=== PATIENT | male | born 1935 | race Caucasian/White ===

== ENCOUNTER 2017-09-06 17:57 | Inpatient (IN) | payer MEDICARE, OTHER ==
[~2017-09-06] VITALS: Ht 160 cm; Wt 85.7 kg
[2017-09-06 18:56] LABS: BASOPHILS # (AUTO) 0.1 /CMM (0.0-0.2); BASOPHILS % (AUTO) 0.5 % (0.0-2.0); EOSINOPHILS % (AUTO) 0.6 % (0.0-6.0); HEMATOCRIT 44 % (39-51); HEMOGLOBIN 14.6 g/dL (13.5-17.5); LYMPHOCYTES # (AUTO) 1.9 /CMM (0.8-4.8); LYMPHOCYTES % (AUTO) 18.3 % (20.0-44.0); MEAN CORPUSCULAR HGB CONC 33 g/dl (31.0-36.0); MEAN CORPUSCULAR VOLUME 85 fL (80-96); MONOCYTES # (AUTO) 0.8 /CMM (0.1-1.30); MONOCYTES % (AUTO) 7.3 % (2.0-12.0); NEUTROPHILS # (AUTO) 7.6 /CMM (1.8-8.9); NEUTROPHILS % (AUTO) 73.3 % (43.0-81.0); PLATELET COUNT (AUTO) 503 /CMM (150-450); RDW COEFFICIENT OF VARIATION 13.7 (11.5-15.0); RED BLOOD CELL COUNT(AUTO) 5.21 MIL/uL (4.5-6.0); WHITE BLOOD COUNT (AUTO) 10.5 K/uL (4.3-11.0)
--- NOTE | 2017-09-06 19:00 | NUR ---
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
[2017-09-06 19:03] LABS: CALCIUM, SERUM 10.7 mg/dL (8.5-10.1); CARBON DIOXIDE 29 mmol/L (21-32); CHLORIDE 99 mmol/L (98-107); CREATININE 1.1 mg/dL (0.6-1.3); GLUCOSE 127 mg/dL (74-106); POTASSIUM 3.8 mmol/L (3.5-5.1); SODIUM SERUM 137 mmol/L (136-145); UREA NITROGEN, BLOOD 13 mg/dL (7-18)
[2017-09-06 19:05] LABS: INR 1.03 (0.85-1.15)
--- NOTE | 2017-09-06 19:05 | NUR ---
TELERN RECEIVED FROM ER VIA [facility] AN 82 Y/O MALE WITH DIAGNOSIS FOR RESPIRATORY FAILURE. NO SOB SEEN. 02 AT 2L VIA WV MAINTAINED. PATIENT IS BIPOLAR, ABLE TO VERBALIZE HIS CONCERNS. WANTED TO GO HOME, EXPLAINED NEED TO BE HOSPITALIZED. COOPERATIVE OF THIS TIME. ORIENTED TO ROOM FACILITIES, REFUSED BODY CHECK FOR NOW. SYLWIA CONTINUE. Addendum: 09/06/17 at 2220 by SHYANN CAVAZOS RN PATIENT RECEIVED FROM ER AT 2105 IN ROOM 304 BED 1
[2017-09-06 19:11] LABS: TROPONIN I < 0.017 ng/mL (0.00-0.056)
[2017-09-06 19:16] LABS: ALANINE AMINOTRANSFERASE 21 U/L (12-78); ALBUMIN 3.2 g/dL (3.4-5.0); ALKALINE PHOSPHATASE 61 U/L (46-116); ASPARTATE AMINOTRANSFERASE 37 U/L (15-37); B-TYPE NATRIURETIC PEPTIDE 88 PG/ML (0-125); BILIRUBIN,DIRECT 0.2 mg/dL (0.0-0.2); BILIRUBIN,TOTAL 0.4 mg/dL (0.2-1.0); TOTAL PROTEIN, SERUM 9.3 g/dL (6.4-8.2)
[2017-09-06 19:47] LABS: ABG BASE EXCESS 1.5 mmol/L; ABG OXYGEN SATURATION 98.2 % (92.0-98.5); ABG PCO2 31.1 mmHg (35.0-45.0); ABG PH 7.501 (7.350-7.450); ABG PO2 109.2 mmHg (75.0-100.0); AaDO2 82.6 mmHg; COHb 0.7 % (0.5-1.5); MetHb 0.5 % (0.0-1.5); SITE, ABG Right Radial
[2017-09-06 20:00] VITALS: BP 136/98
--- NOTE | 2017-09-06 20:03 | NUR ---
CALLED [email or web address] REPORT CLERK WAS PAGED.
[2017-09-06] MEDS ORDERED: IV NS 0.9% 1,000 ML IV PRN (20:35)
--- NOTE | 2017-09-06 20:52 | NUR ---
PT TRANSPORTED TO [facility]
[2017-09-06] MEDS ORDERED: Z GUARD REMEDY 2 OZ OINT TP PRN (21:00)
[2017-09-06] MEDS ORDERED: LEVOFLOXACIN 500 MG /D5W 100ML 500 MG in PREMIX 1 EA IV ONE (21:00)
[2017-09-06] MEDS ORDERED: MAGNESIUM HYDROXIDE 30 ML UDC PO PRN (21:00)
[2017-09-06] MEDS ORDERED: ONDANSETRON HCL/PF 4 MG/2 ML VIAL IVP PRN (21:00)
[2017-09-06] MEDS ORDERED: MAG HYDROX/AL HYDROX/SIMETH 30 ML UDC PO PRN (21:00)
[2017-09-06] MEDS ORDERED: ENOXAPARIN SODIUM 40 MG/0.4 ML DISP.SYRIN SQ SCH (21:00)
[2017-09-06] MEDS ORDERED: ACETAMINOPHEN 325 MG TABLET PO PRN (21:00)
[2017-09-06] MEDS ORDERED: ZOLPIDEM TARTRATE 5 MG TABLET PO PRN (21:00)
--- NOTE | 2017-09-06 21:05 | NUR ---
TELERN PATIENT RECEIVED FROM ER AT THIS TIME, NOT 190.
[2017-09-06 21:30] VITALS: BP 136/98
[2017-09-06] MEDS ORDERED: LEVOFLOXACIN 500 MG /D5W 100ML 100 ML IV ONE (21:58)
[2017-09-06 22:08] LABS: THYROID STIMULATING HORMONE 1.404 uIU/mL (0.358-3.74)
--- NOTE | 2017-09-06 22:13 | NUR ---
TELERN UNABLE TO SCAN LEVAQUIN 500MG IVPB DOSE FOR TONIGHT. OVERIDE.. PATIENT WENT FOR LUNG SCAN VIA BED.
--- NOTE | 2017-09-06 22:45 | NUR ---
TELERN BACK FROM [facility]. COOPERATIVE THIS TIME. HS CARE STARTED. REPOSITIONED FOR COMFORT. ALL NEEDS MADE. CONTINUED MONITORING. OXYGEN AT 2L VIA NC MAINTAINED.
[2017-09-06] MEDS ORDERED: OLAN5TAB3 PO (23:21)
[2017-09-06] MEDS ORDERED: DOCU100C36 PO (23:21)
[2017-09-06] MEDS ORDERED: OLAN10TA3 PO (23:21)
[2017-09-06] MEDS ORDERED: DESV100T PO (23:21)
[2017-09-06] MEDS ORDERED: METO-357 PO (23:21)
[2017-09-06] MEDS ORDERED: BISA-79 PO (23:21)
[2017-09-06] MEDS ORDERED: TAMS-12 PO (23:21)
[2017-09-06] MEDS ORDERED: LATA2.5D7 EACHEYE (23:21)
[2017-09-06] MEDS ORDERED: FLUO5DRO7 EACHEYE (23:21)
[2017-09-06] MEDS ORDERED: PENI500T PO (23:21)
[2017-09-06] MEDS ORDERED: LEVO100T9 PO (23:21)
[2017-09-06] MEDS ORDERED: FENO145T35 PO (23:21)
[2017-09-06] MEDS ORDERED: OLOP2.5D EACHEYE (23:21)
[2017-09-06] MEDS ORDERED: TRIA80OI TP (23:21)
[2017-09-06] MEDS ORDERED: ATOR10TA PO (23:21)
[2017-09-06] MEDS ORDERED: CHOL200026 PO (23:21)
[2017-09-06] MEDS ORDERED: DEXT15DR6 EACHEYE (23:21)
[2017-09-07] VITALS (7 sets, daily range): BP systolic 112–154; BP diastolic 68–93
[2017-09-07] MEDS ORDERED: BISACODYL (5 MG) 5 MG TABLET.DR PO PRN
--- NOTE | 2017-09-07 02:40 | NUR ---
TELERN SLEEPING APPEARS COMFORTABLE. CONTINUED MONITORING
--- NOTE | 2017-09-07 03:15 | NUR ---
TELERN RECEIVED CALL FROM RADIOLOGIST REGARDING RESULTS OF VQ SCAN.
--- NOTE | 2017-09-07 03:15 | NUR ---
TELERN PER RADIOLOGIST RESULTS IN COMPUTER WILL BE AVAILABLE IN FEW MINUTES.
--- NOTE | 2017-09-07 03:25 | NUR ---
TELERN RELAYED RESULTS TO DR. VALDEZ ORDERS RECEIVED.
[2017-09-07] MEDS ORDERED: ENOXAPARIN SODIUM 40 MG/0.4 ML DISP.SYRIN SQ ONE (04:00)
[2017-09-07] MEDS ORDERED: ENOXAPARIN SODIUM 100 MG/ML DISP.SYRIN SQ SCH (04:00)
--- NOTE | 2017-09-07 04:03 | NUR ---
TELERN ADDITIONAL 40 MG SQ OF LOVENOX ADMINISTERED, PER PHARMACY ADJUSTED RENAL DOSE.
--- NOTE | 2017-09-07 06:30 | NUR ---
TELERN REMAINS STABLE, KEPT COMFORTABLE. CONTINUED MONITORING. REMAINS ST ON THE MONITOR
[2017-09-07 06:45] LABS: IRON, SERUM 52 ug/dl (50-175); TOTAL IRON BINDING CAPACITY 230 ug/dl (250-450)
--- NOTE | 2017-09-07 07:31 | NUR ---
RN ENDOCRINOLOGY NOTES PATIENT RECEIVED RESTING INSIDE ROOM, AWAKE, ALERT AND ORIENTED TO SELF AND PLACE BUT TO TIME/DATE OR SITUATION, PATIENT RE-ORIENTED NEEDED. BREATHING EVEN AND UNLABORED. NO SOB OR ACUTE DISTRESS NOTED AT THIS TIME. PATIENT DENIES ANY PAIN OR DISCOMFORT. AFEBRILE, SKIN DRY AND WARM TO TOUCH. NO CHANGES IN LOC NOTED AT THIS TIME. WILL CONTINUE TO MONITOR. BED LOCKED AND IN LOW POSITION. BILATERAL UPPER SIDE RAILS UP AND LOCKED. CALL LIGHT WITHIN EASY REACH
[2017-09-07] MEDS: ALBUTEROL FS 2.5 MG/3 ML VIAL.NEB NEB SCH ×4 (07:35→19:45)
[2017-09-07 08:42] LABS: BASOPHILS # (AUTO) 0.1 /CMM (0.0-0.2); BASOPHILS % (AUTO) 1.6 % (0.0-2.0); EOSINOPHILS % (AUTO) 1.9 % (0.0-6.0); HEMATOCRIT 42 % (39-51); HEMOGLOBIN 13.8 g/dL (13.5-17.5); LYMPHOCYTES # (AUTO) 2.1 /CMM (0.8-4.8); LYMPHOCYTES % (AUTO) 29.2 % (20.0-44.0); MEAN CORPUSCULAR HGB CONC 33 g/dl (31.0-36.0); MEAN CORPUSCULAR VOLUME 86 fL (80-96); MONOCYTES # (AUTO) 0.8 /CMM (0.1-1.30); MONOCYTES % (AUTO) 11.4 % (2.0-12.0); NEUTROPHILS # (AUTO) 4.2 /CMM (1.8-8.9); NEUTROPHILS % (AUTO) 55.9 % (43.0-81.0); PLATELET COUNT (AUTO) 465 /CMM (150-450); RDW COEFFICIENT OF VARIATION 13.8 (11.5-15.0); RED BLOOD CELL COUNT(AUTO) 4.89 MIL/uL (4.5-6.0); WHITE BLOOD COUNT (AUTO) 7.3 K/uL (4.3-11.0)
[2017-09-07] MEDS: OLANZAPINE 5 MG TABLET PO SCH ×2 (08:53→17:25)
[2017-09-07] MEDS: DOCUSATE SODIUM 100 MG CAPSULE PO SCH ×2 (08:53→17:25)
[2017-09-07] MEDS: TAMSULOSIN 0.4 MG CAP.SR.24H PO SCH (08:53)
[2017-09-07] MEDS: LEVOTHYROXINE SODIUM 100 MCG TABLET PO SCH (08:53)
[2017-09-07] MEDS: FENOFIBRATE NANOCRYS (145 MG) 145 MG TABLET PO SCH (08:54)
[2017-09-07] MEDS: METOPROLOL SUCCINATE 50 MG TAB.SR.24H PO SCH (08:54)
[2017-09-07] MEDS: ENOXAPARIN SODIUM 80 MG/0.8 ML DISP.SYRIN SQ SCH ×2 (08:55→21:27)
[2017-09-07 09:37] LABS: CALCIUM, SERUM 10.1 mg/dL (8.5-10.1); CARBON DIOXIDE 28 mmol/L (21-32); CHLORIDE 102 mmol/L (98-107); GLUCOSE 102 mg/dL (74-106); MAGNESIUM 1.7 mg/dL (1.8-2.4); PHOSPHORUS 3.6 mg/dL (2.5-4.9); POTASSIUM 3.9 mmol/L (3.5-5.1); SODIUM SERUM 141 mmol/L (136-145); UREA NITROGEN, BLOOD 11 mg/dL (7-18)
--- NOTE | 2017-09-07 11:01 | NUR ---
MS RN NOTES PATIENT SEEN AND EXAMINED BY DR. SINGLETARY, WITH NEW ORDERS FOR CT CHEST WITH CONTRAST. ORDER NOTED AND CARRIED OUT. PATIENT MADE AWARE AND VERBALIZED UNDERSTANDING. VERIFIED INFORMED CONSENT OBTAINED BY FROM MAYI PARSONS (COUSIN/POA). TELEPHONE CONSENT VERIFIED WITH ANOTHER RN. ALSO VERIFIED CODE STATUS WITH MAYI PARSONS AND VERBALIZED THAT HE WANTS TO KEEP THE CODE STATUS DNR/DNI. MADE AWARE
[2017-09-07] MEDS ORDERED: IV NS 0.9% 250 ML IV ONE (13:44)
[2017-09-07] MEDS ORDERED: IOHEXOL-350 100 ML VIAL IV ONE (13:44)
--- NOTE | 2017-09-07 14:50 | NUR ---
MS RN NOTES RECEIVED CALL FROM RADIOLOGY DEPARMENT WITH REPORT THAT PATIENT IS POSITIVE FOR RIGHT PULMONARY EMBOLISM, DR. SINGLETARY MADE AWARE.
--- NOTE | 2017-09-07 16:31 | NUR ---
INITIAL DUPLEX VENOUS LOWER EXT BI STUDY SHOWED POSITIVE FOR RIGHT DVT ON CFV, SFV PROX AND SFV MID LEVELS. ADVISED PRELIMINARY RESULTS TO ATTENDING NURSE (JULIETH).
--- NOTE | 2017-09-07 17:03 | NUR ---
MS RN NOTES FOLLOWED-UP WITH LAB RESULTS WITH DR. SINGLETARY REGARDING MAGNESIUM LEVEL AND GAVE NEW ORDER FOR MAGNESIUM 2g IV X 1. ORDER NOTED AND CARRIED OUT. PHARMACY TO VERIFY MEDICATION. WILL CONTINUE TO MONITOR
[2017-09-07] MEDS: Magnesium 1GM/D5W 100ML PREMIX 100 ML IV SCH ×2 (17:25→18:27)
[2017-09-07] MEDS: ATORVASTATIN 10 MG TABLET PO SCH (17:25)
[2017-09-07] MEDS ORDERED: Magnesium 1GM/D5W 100ML PREMIX PIGGYBACK IV ONE (17:30)
[2017-09-07] MEDS: HYDROCODONE/APAP 5/325MG 1 EACH TABLET PO PRN (17:41)
--- NOTE | 2017-09-07 17:50 | NUR ---
MS RN NOTES PLACED CALL TO PHARMACY TO FOLLOW-UP REGARDING XALATAN OPTH MEDICATION, SPOKE WITH JOSE MANUEL. MEDICATION IS NOT PRESENT IN UNIT. PHARMACY TO DELIVER PER JOSE MANUEL.
--- NOTE | 2017-09-07 18:28 | NUR ---
MS RN NOTES CALLED PHARMACY AGAIN TO FOLLOW-UP WITH XALATAN MEDICATION IS NOT AVAILABLE IN UNIT. PHARMACY TO FOLLOW-UP
--- NOTE | 2017-09-07 18:34 | NUR ---
MS RN NOTES PATIENT RESTING INSIDE ROOM. AWAKE, ALERT AND ORIENTED 2-3 WITH PERIODS OF FORGETFULNESS. BREATHING EVEN AND UNLABORED. ON O2 AT 2L/MIN VIA NC. NO NASAL IRRITATION OR BLEEDING NOTED. NO SOB OR ACUTE DISTRESS NOTED. PATIENT AFEBRILE, SKIN DRY AND WARM TO TOUCH. IV SITE ON RIGHT AC INTACT AND PATENT. WILL ENDORSE TO INCOMING SHIFT FOR CAROL. BED LOCKED AND IN LOW POSITION. BILATERAL UPPER SIDE RAILS UP AND LOCKED. FLOATED HEELS WITH PILLOWS WHILE ON BED. CALL LIGHT WITHIN EASY REACH
[2017-09-07] MEDS: LATANOPROST EYE DROP 0.005% 2.5 ML BOTTLE EACHEYE SCH (18:57)
--- NOTE | 2017-09-07 19:20 | NUR ---
RN OPENING NOTES RECEIVED PATIENT IN BED, ALERT AND ORIENTED X 2-3, NOTED TO BE FORGETFUL, NO SOB NOTED, BREATHING EVEN AND UNLABORED, RECEIVING O2 VIA NC @2LPM, NO C/O PAIN, IN NO ACUTE DISTRESS. ALL PATIENT'S NEEDS ATTENDED TO AT THIS TIME. PLACED BED IN LOW POSITION AND LOCKED IN PLACE. CALL LIGHT WITHIN EASY REACH. WILL CONTINUE TO MONITOR PT.
[2017-09-07 20:09] LABS: APPEARANCE,URINE SL CLOUDY (CLEAR); BILIRUBIN,URINE NEGATIVE (NEGATIVE); BLOOD, URINE TRACE Ery/uL (NEGATIVE); COLOR,URINE YELLOW (YELLOW); KETONES,URINE NEGATIVE (NEGATIVE); LEUKOCYTE ESTERASE ,URINE 1+ (NEGATIVE); NITRITE, URINE NEGATIVE (NEGATIVE); PH,URINE 8.5 (5.0-8.0); PROTEIN,URINE NEGATIVE (NEGATIVE); UGLUCOSE NEGATIVE (NEGATIVE); UROBILINOGEN,URINE 0.2 EU/dL (0.2)
[2017-09-07] MEDS: LEVOFLOXACIN 250 MG /D5W 50 ML 250 MG in PREMIX 1 EA IV SCH (20:22)
[2017-09-07 20:56] LABS: BACTERIA,URINE Moderate /HPF (None Seen); RBC,URINE 0-2 /HPF (0-2); SQUAMOUS EPITHELIAL CELL,UR Few /HPF (None Seen)
--- NOTE | 2017-09-08 04:47 | NUR ---
RN NOTES INFORMED DR. VALDEZ RE: PATIENT'S URINE PROFILE WITH ABNORMAL LEVELS, MD WITH NO NEW ORDERS. WILL CONTINUE TO MONITOR PATIENT.
--- NOTE | 2017-09-08 06:45 | NUR ---
304-1 RN CLOSING NOTES PATIENT IN BED, ASLEEP BUT EASILY AWOKEN. NOTED PATIENT TO HAVE EPISODES OF FORGETFULNESS, RE-ORIENTED NEEDED. NO SOB THROUGHOUT THE SHIFT AND CONTINUES TO RECEIVE O2 VIA NC @ 2LPM. ALL PATIENT'S NEEDS ATTENDED TO AT THIS TIME, BED IN LOW POSITION AND LOCKED IN PLACE. CALL LIGHT WITHIN EASY REACH. WILL ENDORSE TO AM SHIFT NURSE FOR CONTINUITY OF CARE.
[2017-09-08 07:11] LABS: BASOPHILS # (AUTO) 0.1 /CMM (0.0-0.2); BASOPHILS % (AUTO) 0.9 % (0.0-2.0); EOSINOPHILS % (AUTO) 4.1 % (0.0-6.0); HEMATOCRIT 41 % (39-51); HEMOGLOBIN 13.8 g/dL (13.5-17.5); LYMPHOCYTES # (AUTO) 2.2 /CMM (0.8-4.8); LYMPHOCYTES % (AUTO) 35.2 % (20.0-44.0); MEAN CORPUSCULAR HGB CONC 33 g/dl (31.0-36.0); MEAN CORPUSCULAR VOLUME 85 fL (80-96); MONOCYTES # (AUTO) 0.7 /CMM (0.1-1.30); MONOCYTES % (AUTO) 11.3 % (2.0-12.0); NEUTROPHILS % (AUTO) 48.5 % (43.0-81.0); PLATELET COUNT (AUTO) 418 /CMM (150-450); RDW COEFFICIENT OF VARIATION 13.8 (11.5-15.0); RED BLOOD CELL COUNT(AUTO) 4.88 MIL/uL (4.5-6.0); WHITE BLOOD COUNT (AUTO) 6.3 K/uL (4.3-11.0)
--- NOTE | 2017-09-08 07:26 | NUR ---
MS RN NOTES PATIENT RECEIVED RESTING INSIDE ROOM, AWAKE, ALERT AND ORIENTED 2-3 WITH PERIODS OF FORGETFULNESS. PATIENT BREATHING EVEN AND UNLABORED, NO SOB OR ACUTE DISTRESS NOTED AT THIS TIME. PATIENT DENIES ANY PAIN OR DISCOMFORT. NO CHANGES IN LOC NOTED AT THIS TIME. PATIENT AFEBRILE. PATIENT WITH MULTIPLE VERBALIZATIONS SAYING HE WANTS TO GO HOME AND THAT HE HAS BEEN HERE FOR A WEEK. RE-ORIENTED PATIENT, EXPLAINED THAT HE WAS ADMITTED TO THE UNIT ON 09/06. SAFE PRECAUTIONS MAINTAINED. WILL CONTINUE TO MONITOR. BED LOCKED AND IN LOW POSITION. BILATERAL UPPER SIDE RAILS UP AND LOCKED. CALL LIGHT WITHIN EASY REACH
[2017-09-08 07:28] LABS: CALCIUM, SERUM 9.7 mg/dL (8.5-10.1); CARBON DIOXIDE 31 mmol/L (21-32); CHLORIDE 103 mmol/L (98-107); GLUCOSE 101 mg/dL (74-106); MAGNESIUM 2.1 mg/dL (1.8-2.4); PHOSPHORUS 4.3 mg/dL (2.5-4.9); POTASSIUM 4.2 mmol/L (3.5-5.1); SODIUM SERUM 140 mmol/L (136-145); UREA NITROGEN, BLOOD 9 mg/dL (7-18)
[2017-09-08] MEDS: ALBUTEROL FS 2.5 MG/3 ML VIAL.NEB NEB SCH ×4 (07:32→20:15)
[2017-09-08] MEDS: METOPROLOL SUCCINATE 50 MG TAB.SR.24H PO SCH (08:26)
[2017-09-08] MEDS: DOCUSATE SODIUM 100 MG CAPSULE PO SCH ×2 (08:26→17:05)
[2017-09-08] MEDS: LEVOTHYROXINE SODIUM 100 MCG TABLET PO SCH (08:26)
[2017-09-08] MEDS: TAMSULOSIN 0.4 MG CAP.SR.24H PO SCH (08:26)
[2017-09-08] MEDS: FENOFIBRATE NANOCRYS (145 MG) 145 MG TABLET PO SCH (08:26)
[2017-09-08] MEDS: OLANZAPINE 5 MG TABLET PO SCH ×2 (08:26→17:05)
[2017-09-08] MEDS: ENOXAPARIN SODIUM 80 MG/0.8 ML DISP.SYRIN SQ SCH ×2 (08:27→21:09)
[2017-09-08 08:28] VITALS: BP 143/87
--- NOTE | 2017-09-08 09:20 | NUR ---
MS RN NOTES PATIENT SEEN AND EXAMINED BY DR. SINGLETARY. WITH ORDER TO CONTINUE WITH PT EVALUATION. VERIFIED WITH DR. SINGLETARY IF ITS OK TO HAVE PT EVAL PATIENT WITH POSITIVE RIGHT PULMONARY EMBOLI PER CTA AND RLE DVT. DR. SINGLETARY SAID ITS OK FOR PATIENT TO HAVE PT EVAL. PT MADE AWARE. FOR PT EVAL THIS AM. WILL CONTINUE TO MONITOR
--- NOTE | 2017-09-08 09:38 | NUR ---
MS RN NOTES RECEIVED CALL FROM MAYI (COUSIN/POA) AND RECEIVED INFORMATION REGARDING PATIENT CONDITION. PER MAYI, PATIENT HAS A PAIN PUMP ON HIS BACK. RECEIVED PAIN MANAGEMENT DOCTOR INFORMATION FOR DR. CHARLOTTE TAYLOR, TEL NO: [phone] PLACED CALL TO OFFICE AND SPOKE WITH MAGGIE, VERIFIED PATIENT INFORMATION, RECEIVED REPORT THAT PATIENT HAS A 'NEVRO' SPINAL CORD STIMULATOR, SPACER, AND AN INTRATHECAL PAIN PUMP. ALSO RECEIVED REPORT THAT PATIENT IS SAFE TO HAVE AN MRI IN CASE ORDERED AND SHOULD AN MRI BE ORDERED, TO INFORM DR. TAYLOR'S OFFICE PAIN MEDICATION FROM INTRATHECAL PUMP NEEDS TO BE REMOVED BY PAIN MANAGEMENT DEPALLETIZER OPERATOR PRIOR TO MRI AND REPLACED BACK AFTER. MADE AWARE.
--- NOTE | 2017-09-08 11:24 | NUR ---
MS RN NOTES PATIENT SEEN AND EVALUATED BY PT. PER REPORT, PATIENT WAS ABLE TO AMBULATE UP TO 20 FEET WITH MAX 2 PERSON ASSISTANCE.
[2017-09-08 16:01] VITALS: BP 134/57
[2017-09-08] MEDS: ATORVASTATIN 10 MG TABLET PO SCH (17:05)
[2017-09-08] MEDS: LATANOPROST EYE DROP 0.005% 2.5 ML BOTTLE EACHEYE SCH (17:06)
--- NOTE | 2017-09-08 18:47 | NUR ---
MS RN NOTES PATIENT RESTING INSIDE ROOM, AWAKE, ALERT AND ORIENTED. ABLE TO MAKE NEEDS KNOWN AND FOLLOW SIMPLE INSTRUCTIONS. PATIENT BREATHING EVEN AND UNLABORED. NO SOB OR ACUTE DISTRESS NOTED. PATIENT DENIES ANY PAIN OR DISCOMFORT. NO CHANGES IN LOC NOTED AT THIS TIME. IV SITE ON RIGHT AC INTACT AND PATENT. NO BLEEDING OR SWELLING NOTED. WILL ENDORSE TO INCOMING SHIFT FOR CAROL. BED LOCKED AND IN LOW POSITION. BILATERAL UPPER SIDE RAILS UP AND LOCKED. CALL LIGHT WITHIN EASY REACH.
--- NOTE | 2017-09-08 19:15 | NUR ---
RN OPENING NOTES PATIENT RECEIVED AWAKE IN BED, ALERT, ABLE TO MAKE NEEDS KNOWN, NO SOB AT THIS TIME, BREATHING EVEN AND UNLABORED, I NO ACUTE DISTRESS AND WITH NO C/O PAIN AT THIS TIME. ALL PATIENT'S NEEDS ATTENDED TO AT THIS TIME. PLACED BED IN LOW POSITION AND LOCKED IN PLACE. RUTHANN LIGHT WITHIN EASY REACH. WILL CONTINUE TO MONITOR PT.
[2017-09-08 20:00] VITALS: BP 143/75
[2017-09-08] MEDS: LEVOFLOXACIN 250 MG /D5W 50 ML 250 MG in PREMIX 1 EA IV SCH (20:28)
[2017-09-08] MEDS: HYDROCODONE/APAP 5/325MG 1 EACH TABLET PO PRN (22:54)
--- NOTE | 2017-09-09 07:20 | NUR ---
RN CLOSING NOTES PATIENT IN BED, ASLEEP BUT EASILY AROUSABLE, IN NO ACUTE DISTRESS, NO SOB, IN STABLE CONDITION. WILL ENDORSE TO AM SHIFT NURSE FOR CONTINUITY OF CARE.
[2017-09-09] MEDS: ALBUTEROL FS 2.5 MG/3 ML VIAL.NEB NEB SCH ×3 (07:36→15:50)
--- NOTE | 2017-09-09 07:45 | NUR ---
MS RN OPENING NOTES RECEIVED PATIENT IN NO APPARENT DISTRESS. BEDSIDE RAILS ARE UPX2. BED IS LOCKED AND LOWERED. CALL LIGHT IS WITHIN REACH. IV LINE IS PATENT AND INTACT. WILL CONTINUE TO MONITOR.
[2017-09-09 08:00] VITALS: BP 148/78
[2017-09-09] MEDS: LEVOTHYROXINE SODIUM 100 MCG TABLET PO SCH (08:55)
[2017-09-09] MEDS: TAMSULOSIN 0.4 MG CAP.SR.24H PO SCH (08:56)
[2017-09-09] MEDS: FENOFIBRATE NANOCRYS (145 MG) 145 MG TABLET PO SCH (08:56)
[2017-09-09] MEDS: DOCUSATE SODIUM 100 MG CAPSULE PO SCH ×2 (08:56→17:00)
[2017-09-09] MEDS: METOPROLOL SUCCINATE 50 MG TAB.SR.24H PO SCH (08:56)
[2017-09-09] MEDS: OLANZAPINE 5 MG TABLET PO SCH (08:58)
[2017-09-09] MEDS: ENOXAPARIN SODIUM 80 MG/0.8 ML DISP.SYRIN SQ SCH (09:21)
[2017-09-09] MEDS ORDERED: APIX5TAB PO (12:29)
[2017-09-09 16:00] VITALS: BP 126/89
[2017-09-09] MEDS: HYDROCODONE/APAP 5/325MG 1 EACH TABLET PO PRN (16:14)
[2017-09-09] MEDS ORDERED: APIXABAN 5 MG TABLET PO SCH ×2 (17:00→21:00)
--- NOTE | 2017-09-09 18:11 | NUR ---
MS CAR ATTENDANT PATIENT ID BAND WAS REMOVED. IV WAS REMOVED. EXITCARE PROVIDED TO THE EMT. ALL NEEDS WERE MET. PATIENT IS GOING TO [facility]. SPOKE TO KALIN RN ROOM 4B. PATIENT WAS ESCORTED OUT OF THE HOSPITAL VIA GURNEY BY EMT.
[2017-09-17] MEDS ORDERED: APIXABAN 5 MG TABLET PO SCH (09:00)
== END 2017-09-09 18:31 | DRG 175 ==
LOC: ER 18:02 → TELE 20:45 → MED 09-07 09:00
PROVIDERS: ADMIT Internal Medicine; ATTEND Internal Medicine
DX: I26.99 Other pulmonary embolism without acute cor pulmonale (principal); J96.01 Acute respiratory failure with hypoxia; G92 Toxic encephalopathy; I82.411 Acute embolism and thrombosis of right femoral vein; J98.11 Atelectasis; I12.9 Hypertensive chronic kidney disease with stage 1 through stage 4 chronic kidney disease, or unspecified chronic kidney disease; N18.9 Chronic kidney disease, unspecified; E86.0 Dehydration; E03.9 Hypothyroidism, unspecified; G30.9 Alzheimer's disease, unspecified; F02.80 Dementia in other diseases classified elsewhere, unspecified severity, without behavioral disturbance, psychotic disturbance, mood disturbance, and anxiety; E78.5 Hyperlipidemia, unspecified; K21.9 Gastro-esophageal reflux disease without esophagitis; Z66 Do not resuscitate; Z87.891 Personal history of nicotine dependence; N40.0 Benign prostatic hyperplasia without lower urinary tract symptoms; F31.9 Bipolar disorder, unspecified; H40.9 Unspecified glaucoma
CPT/HCPCS: 36415; 36600; 71045-TC; 78582; 80048-TC; 80061-TC; 80076-TC; 81000-TC; 82746; 82803-TC; 83540-TC; 83605-TC; 83735-TC; 83880; 84100-TC; 84443-TC; 84484-TC; 85025-TC; 85730-TC; 87040-TC; 87081-TC; 87086-TC; 93307-TC; 93970-TC; 94640-TC; 94799-TC; 97116-TC; 97530-TC; A4216; A4606; A9540; A9567; J1650; J1956; J3475; J7030; J7050; Q9967; Z7610

== ENCOUNTER 2017-12-14 11:47 | Inpatient (IN) | payer MEDICARE, OTHER ==
[~2017-12-14] VITALS: Ht 180.3 cm; Wt 74.4 kg
[~2017-12-14 11:47] MED LIST: APIX5TAB PO; ATOR10TA PO; BISA-79 PO; CHOL200026 PO; DESV100T PO; DEXT15DR6 EACHEYE; DOCU100C36 PO; FENO145T35 PO; FLUO5DRO7 EACHEYE; LATA2.5D7 EACHEYE; LEVO100T9 PO; METO-357 PO; OLAN10TA3 PO; OLAN5TAB3 PO; OLOP2.5D EACHEYE; PENI500T PO; TAMS-12 PO; TRIA80OI TP
--- NOTE | 2017-12-14 11:50 | NUR ---
[facility] FOR NON HEALING LEFT HEEL P.ULCER, FAILURE TO THRIVE; LOST 17 LBS IN THE PAST MONTH. SENT BY (WOUND DR). PATIENT IS A/OX 2, BREATHING EVEN AND UNLABORED. NO SOB, NAD, VITALS STABLE. SAFETY AND COMFORT MEASURES IN PLACE. AWAITING MD ORDERS.
--- NOTE | 2017-12-14 12:00 | NUR ---
NEW IV STARTED ON LEFT WRIST, 18G. BLOOD DRAWN AND SENT TO LAB.
[2017-12-14 12:06] LABS: BASOPHILS # (AUTO) 0.1 /CMM (0.0-0.2); BASOPHILS % (AUTO) 0.6 % (0.0-2.0); EOSINOPHILS % (AUTO) 2.7 % (0.0-6.0); HEMATOCRIT 39 % (39-51); HEMOGLOBIN 13.1 g/dL (13.5-17.5); LYMPHOCYTES # (AUTO) 1.8 /CMM (0.8-4.8); LYMPHOCYTES % (AUTO) 17.3 % (20.0-44.0); MEAN CORPUSCULAR HEMOGLOBIN 28 PG (26.0-33.0); MEAN CORPUSCULAR HGB CONC 34 g/dl (31.0-36.0); MEAN CORPUSCULAR VOLUME 84 fL (80-96); MONOCYTES # (AUTO) 0.6 /CMM (0.1-1.30); MONOCYTES % (AUTO) 5.4 % (2.0-12.0); NEUTROPHILS # (AUTO) 7.4 /CMM (1.8-8.9); PLATELET COUNT (AUTO) 495 /CMM (150-450); RDW COEFFICIENT OF VARIATION 15.4 (11.5-15.0); RED BLOOD CELL COUNT(AUTO) 4.62 MIL/uL (4.5-6.0); WHITE BLOOD COUNT (AUTO) 10.2 K/uL (4.3-11.0)
[2017-12-14 12:20] LABS: INR 1.01 (0.85-1.15)
[2017-12-14 12:21] LABS: BILIRUBIN,DIRECT 0.2 mg/dL (0.0-0.2); BILIRUBIN,TOTAL 0.3 mg/dL (0.2-1.0); TOTAL PROTEIN, SERUM 8.7 g/dL (6.4-8.2)
[2017-12-14] MEDS ORDERED: TRAM50TA2 PO (12:27)
[2017-12-14] MEDS ORDERED: NA P133E RC (12:30)
[2017-12-14 12:39] LABS: CALCIUM, SERUM 10.2 mg/dL (8.5-10.1); CARBON DIOXIDE 28 mmol/L (21-32); CHLORIDE 98 mmol/L (98-107); CREATININE 0.9 mg/dL (0.6-1.3); GLUCOSE 168 mg/dL (74-106); POTASSIUM 3.7 mmol/L (3.5-5.1); SODIUM SERUM 134 mmol/L (136-145); UREA NITROGEN, BLOOD 17 mg/dL (7-18)
--- NOTE | 2017-12-14 12:48 | NUR ---
Cathy garrett in [facility] - 12/14/17 at 1255 by LIZY ELDON CAVANAUGH FOR PANEL - SENIOR APPLICATION SECURITY CONSULTANT LENNOX MCKEON
--- NOTE | 2017-12-14 12:49 | NUR ---
CALLED NURSE SUP FOR MED SURG BED
--- NOTE | 2017-12-14 12:49 | NUR ---
CALLED [facility] FOR PANEL CALL AND LENNOX MCKEON WAS PAGED.
--- NOTE | 2017-12-14 13:13 | NUR ---
PATIENT UNABLE TO URINATE AT THIS TIME. DR. DIAS NOTIFIED AND STATED NO NEED TO CATH PATIENT. WILL CONTINUE TO MONITOR.
[2017-12-14] MEDS ORDERED: MORPHINE SULFATE INJ 2 MG/ML DISP.SYRIN ONE (13:29)
[2017-12-14] MEDS ORDERED: MORPHINE SULFATE INJ 2 MG/ML DISP.SYRIN IV ONE (13:30)
--- NOTE | 2017-12-14 13:34 | NUR ---
PAGED EPIC FOR PANEL AGAIN - REGISTERED NURSE CARDIAC TELEMETRY LENNOX MCKEON
--- NOTE | 2017-12-14 13:35 | NUR ---
CALLED FOR [facility] BED AGAIN
--- NOTE | 2017-12-14 13:44 | NUR ---
ON PHONE WITH HOSPITALIST
--- NOTE | 2017-12-14 13:45 | NUR ---
REPORT GIVEN TO FINN PALACIOS FOR CAROL UPON ADMISSION.
--- NOTE | 2017-12-14 14:22 | NUR ---
PATIENT TRANSPORTED TO [facility] VIA STRETCHER. RNJACOBO TO PROVIDE CAROL.
--- NOTE | 2017-12-14 14:30 | NUR ---
RN MS NOTES RECEIVED PT FROM E.R. STAFF VIA [facility], ADMITTED FOR LEFT HEEL NON HEALING WOUND FOR WOUND DEBRIDEMENT, PT IS AWAKE, ALERT TO SELF, NO SIGN OF PAIN OR DISTRESS, ASSISTED TO BED, MADE COMFORTABLE, ROOM SET UP ORIENTATION PROVIDED TO PT, CALL LIGHT PLACED WITHIN REACH, AWAITING ADMISSION ORDERS FROM DR. MCKEON, KEPT COMFORTABLE IN BED, BED ALARM ON.
--- NOTE | 2017-12-14 19:00 | NUR ---
RN MS NOTES PT IN BED, AWAKE, ALERT, VERBALLY RESPONSIVE, DENIES PAIN, RESPIRATIONS NORMAL, TOLERATING ROOM AIR WELL, AWAITING ORDERS FROM DR. MCKEON, INFORMED THAT PT IS HERE, BODY CHECK DONE, DRESSING CHANGE DONE TO LEFT HEEL ULCER, PLAN FOR DEBRIDEMENT OF LEFT HEEL ULCER, PT INFORMED OF PROCEDURE AND POSSIBLE WOUND VAC PLACEMENT, CONSENT GIVEN BY PT, ASSISTED IN TURNING AND REPOSITIONING, ALL NEEDS ATTENDED.
--- NOTE | 2017-12-14 19:10 | NUR ---
MS RN OPENING NOTE Patient was seen sitting up in bed AAOx2, breathing on RA with no SOB, and no signs of acute distress. Bilateral heels are offloaded. Left heel is covered with dressing, which is clean, dry, and intact. SL 18g IV is in the left wrist, patent and intact. Bed is in the low/locked position, two side rails up, and call jaime within reach. Patient was instructed transplant nurse practitioner jaime use and has no immediate needs at this time. Will continue to monitor.
[2017-12-14 20:00] VITALS: BP 132/67
--- NOTE | 2017-12-14 20:15 | NUR ---
MS RN NOTE - MD call Received call from Dr. Erickson; would like order for patient to be NPO after midnight and to hold all anticoagulants for scheduled wound debridement tomorrow morning 12/15/17. Orders will be entered appropriately. Patient was informed.
[2017-12-15] VITALS (9 sets, daily range): BP systolic 97–147; BP diastolic 63–94
[2017-12-15] MEDS ORDERED: Z GUARD REMEDY 2 OZ OINT TP PRN
[2017-12-15] MEDS ORDERED: ONDANSETRON HCL/PF 4 MG/2 ML VIAL IVP PRN
[2017-12-15] MEDS ORDERED: MORPHINE SULFATE INJ 2 MG/ML DISP.SYRIN IV PRN
[2017-12-15] MEDS ORDERED: ZOLPIDEM TARTRATE 5 MG TABLET PO PRN
[2017-12-15] MEDS ORDERED: ACETAMINOPHEN 325 MG TABLET PO PRN
[2017-12-15] MEDS ORDERED: MAG HYDROX/AL HYDROX/SIMETH 30 ML UDC PO PRN
[2017-12-15] MEDS ORDERED: HYDROCODONE/APAP 10/325MG 1 EA TABLET PO PRN
[2017-12-15] MEDS ORDERED: MAGNESIUM HYDROXIDE 30 ML UDC PO PRN
[2017-12-15] MEDS: IV NS 0.9% 1,000 ML IV PRN ×2 (00:03→20:54)
[2017-12-15] MEDS ORDERED: VANCOMYCIN 1 GM in IV NS 0.9% 250 ML IV SCH (00:30)
--- NOTE | 2017-12-15 00:30 | NUR ---
MS PALACIOS NOTE - wound cx, dressing change Wound culture specimen obtained from left heel wound. Site cleansed afterwards with NS, new mepilex placed and secured with Kerilex.
[2017-12-15] MEDS ORDERED: VANCOMYCIN 1 GM VIAL ONE (00:45)
--- NOTE | 2017-12-15 06:00 | NUR ---
MS PALACIOS NOTE - Consent from DPOA Spoke with Hosea Jin over the phone, cousin and DPOA of patient. Received consent for general anesthesia to be used for wound debridement procedure today 12/15/17. PHILIP Ledbetter served as second witness. Consent forms signed accordingly. Phone number of Hosea Jin is [phone] and cell [phone] (lives in [place]).
[2017-12-15 06:59] LABS: BASOPHILS % (AUTO) 0.4 % (0.0-2.0); EOSINOPHILS % (AUTO) 4.4 % (0.0-6.0); HEMATOCRIT 37 % (39-51); LYMPHOCYTES # (AUTO) 1.7 /CMM (0.8-4.8); LYMPHOCYTES % (AUTO) 19.4 % (20.0-44.0); MEAN CORPUSCULAR HEMOGLOBIN 29 PG (26.0-33.0); MEAN CORPUSCULAR HGB CONC 33 g/dl (31.0-36.0); MEAN CORPUSCULAR VOLUME 87 fL (80-96); MONOCYTES # (AUTO) 0.6 /CMM (0.1-1.30); MONOCYTES % (AUTO) 7.4 % (2.0-12.0); NEUTROPHILS # (AUTO) 5.8 /CMM (1.8-8.9); NEUTROPHILS % (AUTO) 68.4 % (43.0-81.0); PLATELET COUNT (AUTO) 454 /CMM (150-450); RDW COEFFICIENT OF VARIATION 16.1 (11.5-15.0); RED BLOOD CELL COUNT(AUTO) 4.23 MIL/uL (4.5-6.0); WHITE BLOOD COUNT (AUTO) 8.5 K/uL (4.3-11.0)
[2017-12-15 07:07] LABS: ALANINE AMINOTRANSFERASE 21 U/L (12-78); ALBUMIN 2.6 g/dL (3.4-5.0); ALKALINE PHOSPHATASE 69 U/L (46-116); ASPARTATE AMINOTRANSFERASE 27 U/L (15-37); BILIRUBIN,TOTAL 0.4 mg/dL (0.2-1.0); CALCIUM, SERUM 9.6 mg/dL (8.5-10.1); CARBON DIOXIDE 26 mmol/L (21-32); CHLORIDE 100 mmol/L (98-107); CREATININE 0.8 mg/dL (0.6-1.3); GLUCOSE 107 mg/dL (74-106); MAGNESIUM 1.6 mg/dL (1.8-2.4); PHOSPHORUS 3.6 mg/dL (2.5-4.9); POTASSIUM 3.5 mmol/L (3.5-5.1); SODIUM SERUM 135 mmol/L (136-145); UREA NITROGEN, BLOOD 9 mg/dL (7-18)
[2017-12-15] MEDS ORDERED: SUCCINYLCHOLINE CHLORIDE 20 MG/ML VIAL ONE (07:09)
[2017-12-15 07:16] LABS: CHOLESTEROL 182 mg/dL (<200); HDL CHOLESTEROL 33 mg/dL (40-60); LDL 128 mg/dL (0-99); THYROID STIMULATING HORMONE 2.084 uIU/mL (0.358-3.74); TRIGLYCERIDES 155 mg/dL (30-150)
--- NOTE | 2017-12-15 07:44 | NUR ---
MS RN CLOSING NOTE Patient was sleeping in bed but awoke by name and light touch. Patient is AAOx1-2, breathing on RA with no SOB, and no signs of acute distress. Vitals WNL. Patient is due for wound debridement this AM; consents and check-list completed and in patient's chart. Dressing on left heel is still clean, dry, and intact. Patient slept well overnight with no complications. Bed is low/locked, two side rails up, and call jaime within reach. Patient care endorsed to day shift RN.
--- NOTE | 2017-12-15 08:00 | NUR ---
MS RN AM NOTES PT IN BED, AWAKE, ALERT, VERBALLY RESPONSIVE, DENIES PAIN OR DISTRESS, RESPIRATIONS NORMAL, TOLERATING ROOM AIR WELL, ON NPO FOR WOUND DEBRIDEMENT OF LEFT HEEL ULCER.PT INFORMED OF PROCEDURE AND POSSIBLE WOUND VAC PLACEMENT BY DR ELDER, CONSENTS AND CHECKLIST HAS BEEN SIGNED, ASSISTED IN TURNING AND REPOSITIONING, CALL LIGHT PLACED WITHIN REACH.NEEDS ATTENDED.
--- NOTE | 2017-12-15 08:30 | NUR ---
TO O.R. FOR LT HEEL WOUND DEBRIDEMENT PROCEDURE WITH STABLE V/S.
[2017-12-15] MEDS ORDERED: FEE PK DOSING 1 MIN EA MC ONE (08:55)
--- NOTE | 2017-12-15 09:00 | NUR ---
PT'S NEPHEW,MAYI CALLED AND CHECKED ON THE PT.ALSO CLARIFIED CODE STATUS OF THE PT WITH MAYI WHO STATED DNR/DNI STATUS FOR THE PT.WILL INFORM
[2017-12-15] MEDS ORDERED: FENTANYL PF 100MCG/2ML AMPUL ONE (09:03)
[2017-12-15] MEDS ORDERED: MIDAZOLAM HCL 2 MG/2ML VIAL ONE (09:03)
[2017-12-15] MEDS ORDERED: LIDOCAINE 0.5% HCL 50 ML VIAL ONE (09:13)
[2017-12-15] MEDS ORDERED: BUPIVACAINE MPF 0.75% 30 ML VIAL ONE (09:13)
[2017-12-15] MEDS: Magnesium 1GM/D5W 100ML PREMIX 100 ML IV SCH ×2 (10:49→12:04)
--- NOTE | 2017-12-15 10:56 | NUR ---
PT CAME BACK FROM O.R. S/P WOUND DEBRIDEMENT OF LT HEEL ULCER WITH WOUND VAC ON 125 MM HG SETTING WITH NO DRAINAGE YET AT THIS TIME BY DR ELDER.WITH STABLE V/S.PT AWAKE NON VERBAL DENYING ANY PAIN OR DISTRESS.WILL CONTINUE TO MONITOR.
[2017-12-15] MEDS ORDERED: VANCOMYCIN 0.75 GM in IV D5W 250 ML IV SCH (13:00)
[2017-12-15] MEDS: VANCOMYCIN 0.75 GM in IV D5W 250 ML IV SCH (13:09)
--- NOTE | 2017-12-15 14:00 | NUR ---
ATTEMPTED TO COLLECT URINE FOR UA BUT PT REFUSED INSPITE OF EXPLAINING THE RISKS AND BENEFITS.PT INSISTS TO REFUSE.WILL TRY LATER.
--- NOTE | 2017-12-15 14:13 | NUR ---
[facility] CALLED AND REPORTED THAT PT IS POSITIVE OF MRSA POSITIVE NARES.INFORMED DR MCKEON AND MADE AWARE WITH ORDERS CARRIED OUT.
--- NOTE | 2017-12-15 14:15 | NUR ---
PLACED PT ON MRSA NARES ISOLATION PRECAUTIONS.PT EDUCATION DONE.
[2017-12-15] MEDS: MUPIROCIN OINT 2% 22 GM TUBE SCH ×2 (15:36→20:52)
--- NOTE | 2017-12-15 15:38 | NUR ---
PT IS MORE ALERT AND TALKATIVE AND SEEN DOING ARM EXERCISES(IN CIRCLES) IN BED.PT CAN RAISE HIS RT ARM ALL THE WAY UP EXCEPT THE LT ARM WHERE HE CAN RAISE IT A LITTLE AND PT STATED THAT HE IS WEAK ON HIS LT ARM.ENCOURAGED PT TO CONTINUE WITH HIS ARM EXERCISES AND EXPLAINED ITS BENEFITS.
--- NOTE | 2017-12-15 15:57 | NUR ---
ENCOURAGED TO DO LT ARM EXERCISES AND ABLE TO DO LT ARM EXERCISES IN CIRCLES WITH MINIMAL ASSIST.PT WAS IN A GOOD MOOD AND KEEPS SMILING WHILE DOING BILATERAL ARM EXERCISES.
--- NOTE | 2017-12-15 17:09 | NUR ---
SCANNED ZOSYN IVPB SEVERAL TIMES BUT WONT SCAN.NOTIFIED PHARMACIST AND MADE AWARE.MANUAL BARCODING DONE.
--- NOTE | 2017-12-15 17:49 | NUR ---
ATTEMPTED TO COLLECT URINE FOR UA BUT PT STILL REFUSED INSPITE OF EXPLAINING THE RISKS AND BENEFITS.PT INSISTS TO REFUSE.
--- NOTE | 2017-12-15 19:10 | NUR ---
MS RN OPENING NOTE Patient was see lying in bed in high-Yap's AAOx2, breathing on RA with no SOB, and no signs of acute distress. Patient is s/p wound debridement of left heel/foot, which is covered with a dressing that is clean, dry, and intact; wound VAC is also in place set at 125mmHg and draining a scant amount of serosanguineous fluid . NS at 75ml/hr is running through the left wrist IV. Bed is low/locked, two side rails up, and call jaime within reach. Patient has no immediate needs at this time. Will continue to monitor.
[2017-12-16] MEDS: VANCOMYCIN 0.75 GM in IV D5W 250 ML IV SCH ×2 (00:47→12:23)
[2017-12-16 06:20] LABS: APPEARANCE,URINE SL CLOUDY (CLEAR); BILIRUBIN,URINE NEGATIVE (NEGATIVE); BLOOD, URINE NEGATIVE Ery/uL (NEGATIVE); COLOR,URINE YELLOW (YELLOW); KETONES,URINE NEGATIVE (NEGATIVE); LEUKOCYTE ESTERASE ,URINE NEGATIVE (NEGATIVE); NITRITE, URINE NEGATIVE (NEGATIVE); PROTEIN,URINE NEGATIVE (NEGATIVE); UGLUCOSE NEGATIVE (NEGATIVE)
[2017-12-16 06:28] LABS: BACTERIA,URINE None seen /HPF (None Seen); RBC,URINE 0-2 /HPF (0-2); SQUAMOUS EPITHELIAL CELL,UR 0-2 /HPF (None Seen); URINE AMORPHOUS URATE Moderate /HPF (None Seen); WBC,URINE 0-2 /HPF (0-3)
--- NOTE | 2017-12-16 06:35 | NUR ---
MS RN CLOSING NOTE Patient is AAOx1, breathing on RA with no SOB, and no signs of acute distress. Dressing on left foot is clean, dry, and intact; wound VAC is set to 125mmHg and is draining a scant amount of serosanguineous fluid. Bilateral heels are offloaded, and patient was turned/repositioned q2h. NS at 75ml/hr is running through the left wrist IV. Bed is low/locked, two side rails up, and call jaime within reach. Patient remains in stable condition, and all needs have been addressed. Patient care endorsed to day shift nurse.
[2017-12-16 07:11] LABS: BASOPHILS # (AUTO) 0.1 /CMM (0.0-0.2); BASOPHILS % (AUTO) 0.7 % (0.0-2.0); EOSINOPHILS % (AUTO) 5.8 % (0.0-6.0); HEMATOCRIT 34 % (39-51); HEMOGLOBIN 11.1 g/dL (13.5-17.5); LYMPHOCYTES # (AUTO) 1.7 /CMM (0.8-4.8); LYMPHOCYTES % (AUTO) 22.3 % (20.0-44.0); MEAN CORPUSCULAR HEMOGLOBIN 29 PG (26.0-33.0); MEAN CORPUSCULAR HGB CONC 33 g/dl (31.0-36.0); MEAN CORPUSCULAR VOLUME 87 fL (80-96); MONOCYTES # (AUTO) 0.6 /CMM (0.1-1.30); MONOCYTES % (AUTO) 8.3 % (2.0-12.0); NEUTROPHILS # (AUTO) 4.7 /CMM (1.8-8.9); NEUTROPHILS % (AUTO) 62.9 % (43.0-81.0); PLATELET COUNT (AUTO) 403 /CMM (150-450); RDW COEFFICIENT OF VARIATION 16.2 (11.5-15.0); RED BLOOD CELL COUNT(AUTO) 3.89 MIL/uL (4.5-6.0); WHITE BLOOD COUNT (AUTO) 7.5 K/uL (4.3-11.0)
[2017-12-16 07:20] LABS: CALCIUM, SERUM 9.1 mg/dL (8.5-10.1); CARBON DIOXIDE 25 mmol/L (21-32); CHLORIDE 102 mmol/L (98-107); CREATININE 0.7 mg/dL (0.6-1.3); GLUCOSE 97 mg/dL (74-106); MAGNESIUM 1.8 mg/dL (1.8-2.4); PHOSPHORUS 3.1 mg/dL (2.5-4.9); POTASSIUM 3.4 mmol/L (3.5-5.1); SODIUM SERUM 135 mmol/L (136-145); UREA NITROGEN, BLOOD 6 mg/dL (7-18)
--- NOTE | 2017-12-16 07:37 | NUR ---
MS RN NOTES PATIENT RECEIVED RESTING INSIDE ROOM. AWAKE, ALERT AND ORIENTED X 1. VERBALLY RESPONSIVE AND RESPONDS TO VERBAL AND TACTILE STIMULI. BREATHING EVEN AND UNLABORED. NO SOB OR ACUTE DISTRESS NOTED AT THIS TIME. PATIENT RUTHANN, AND RELAXED. NO CHANGES IN LOC NOTED AT THIS TIME. CONNECTED TO WOUND VAC AT 125 mmHg WITH SEROSANGUINEOUS DRAINAGE ON COLLECTING CANISTER. IV SITE INTACT AND PATENT. NO SWELLING OR BLEEDING NOTED AT THIS TIME. WILL CONTINUE TO MONITOR. BED LOCKED AND IN LOW POSITION. BILATERAL UPPER SIDE RAILS UP AND LOCKED. MAINTAINED ISOLATION PRECAUTIONS. CALL LIGHT WITHIN EASY REACH
[2017-12-16] MEDS: MUPIROCIN OINT 2% 22 GM TUBE SCH ×2 (08:45→21:54)
[2017-12-16 08:58] VITALS: BP 116/71
--- NOTE | 2017-12-16 10:16 | NUR ---
BRIMMER BLOCKER WOUND VAC ORDERS CLARIFIED WITH DR ELDER AND REVISED PER ORDERS. NO OTHER PROCEDURES ARE CURRENTLY PLANNED, NO SKIN GRAFT WAS APPLIED TO THE WOUND, ONLY WOUND DEBRIDEMENT WAS DONE. DR ELDER DOES WANT THE PATIENT TO RESUME NPWT (VAC) THERAPY ONCE HE IS BACK AT THE SNF. HE WILL ALSO FOLLOW PATIENT AT THE SNF. ALL DISCUSSED WITH NAILER MACHINE CHRISTINA AND NURSING STAFF.
[2017-12-16] MEDS ORDERED: HYDROGEL DRESSING 90 GM TUBE TP PRN (10:30)
--- NOTE | 2017-12-16 10:34 | NUR ---
MS RN NOTES RECEIVED CALL FROM [facility], WOUND CARE NURSE. REGARDING PATIENT'S LEFT HEEL WOUND, IF PATIENT IS TO BE DISCHARGED FROM HOSPITAL. WOUND VAC TO BE REMOVED AND KEEP WOUND VAC IN HOSPITAL; MAY APPLY HYDROGEL AND DRY DRESSING ON WOUND UPON DISCHARGE. IF PATIENT STAYS IN HOSPITAL, DR. ELDER TO CHANGE WOUND VAC DRESSING. PATIENT MADE AWARE AND VERBALIZED UNDERSTANDING. WILL CONTINUE TO MONITOR
[2017-12-16] MEDS ORDERED: POTASSIUM CHLORIDE 20 MEQ TAB.PRT.SR PO ONE (11:30)
[2017-12-16] MEDS: IV NS 0.9% 1,000 ML IV PRN (12:20)
[2017-12-16 16:00] VITALS: BP 154/98
--- NOTE | 2017-12-16 18:52 | NUR ---
MS RN NOTES PATIENT RESTING INSIDE ROOM. AWAKE, ALERT AND ORIENTED X 1-2. VERBALLY RESPONSIVE AND RESPONDS TO VERBAL AND TACTILE STIMULI. BREATHING EVEN AND UNLABORED. NO SOB OR ACUTE DISTRESS NOTED AT THIS TIME. PATIENT DENIES ANY PAIN OR DISCOMFORT. NO CHANGES IN LOC NOTED. IV SITE INTACT AND PATENT. NO SWELLING OR BLEEDING NOTED. CONTINUE WITH WOUND VAC ON LEFT HEEL WITH SEROSANGUINEOUS DRAINAGE ON COLLECTING CANISTER. WILL ENDORSE TO INCOMING SHIFT FOR CAROL. BED LOCKED AND IN LOW POSITION. BILATERAL UPPER SIDE RAILS UP AND LOCKED. MAINTAINED ISOLATION PRECAUTION. CALL LIGHT WITHIN EASY REACH
--- NOTE | 2017-12-16 19:25 | NUR ---
MS/RN NOTES RECEIVED PT. LYING IN BED. PT. IS RESTING AND RESPONDS TO VERBAL AND TACTILE STIMULI. PT. IS AWAKE, ALERT AND ORIENTED TO SELF. BREATHING EVEN AND UNLABORED ON ROOM AIR. NO SOB, RESPIRATORY DISTRESS OR S/S OF PAIN NOTED AT THIS TIME. PT. WITH LEFT WRIST 18 GAUGE PERIPHERAL IV PRESENT, PATENT AND INTACT ADMINISTERING TO PT. NS @ 75 ML/HR. PT. WITH WOUND VAC PRESENT TO LEFT HEEL. PT. WITH LEFT LOWER LEG/HEEL DRESSING PRESENT, CLEAN, DRY AND INTACT. NO BLEEDING OR DRAINAGE NOTED. WOUND VAC WITH MINIMAL SEROSANGUINOUS DRAINAGE NOTED. BED LOCKED AND IN LOWEST POSITION, SIDE RAILS UP X3, BED ALARM ON, CALL LIGHT WITHIN REACH, WILL CONTINUE TO MONITOR.
[2017-12-16 20:00] VITALS: BP 126/73
[2017-12-17] MEDS: VANCOMYCIN 0.75 GM in IV D5W 250 ML IV SCH ×2 (01:52→13:36)
[2017-12-17] MEDS: IV NS 0.9% 1,000 ML IV PRN (06:10)
--- NOTE | 2017-12-17 07:08 | NUR ---
MS/RN NOTES PT. IS LYING IN BED RESTING AND RESPONDS TO VERBAL AND TACTILE STIMULI. PT. IS AWAKE, ALERT AND ORIENTED TO SELF. BREATHING EVEN AND UNLABORED ON ROOM AIR. NO SOB, RESPIRATORY DISTRESS OR S/S OF PAIN NOTED AT THIS TIME. PT. WITH LEFT WRIST 18 GAUGE PERIPHERAL IV PRESENT, PATENT AND INTACT ADMINISTERING TO PT. NS @ 75 ML/HR. PT. WITH WOUND VAC PRESENT TO LEFT HEEL WITH MINIMAL SEROSANGUINOUS DRAINAGE NOTED. ALL PT. NEEDS MET. PT. OFFLOADED, TURNED AND REPOSITIONED Q2H AND NEEDED. BED LOCKED AND IN LOWEST POSITION, SIDE RAILS UP X3, BED ALARM ON, CALL LIGHT WITHIN REACH, WILL ENDORSE TO DAYSPRFT NURSE FOR CONTINUITY OF CARE.
[2017-12-17 07:13] LABS: BASOPHILS % (AUTO) 0.4 % (0.0-2.0); HEMATOCRIT 33 % (39-51); HEMOGLOBIN 10.9 g/dL (13.5-17.5); LYMPHOCYTES # (AUTO) 1.7 /CMM (0.8-4.8); LYMPHOCYTES % (AUTO) 25.9 % (20.0-44.0); MEAN CORPUSCULAR HEMOGLOBIN 29 PG (26.0-33.0); MEAN CORPUSCULAR HGB CONC 33 g/dl (31.0-36.0); MEAN CORPUSCULAR VOLUME 86 fL (80-96); MONOCYTES # (AUTO) 0.6 /CMM (0.1-1.30); MONOCYTES % (AUTO) 9.7 % (2.0-12.0); NEUTROPHILS # (AUTO) 3.8 /CMM (1.8-8.9); PLATELET COUNT (AUTO) 387 /CMM (150-450); RDW COEFFICIENT OF VARIATION 16.1 (11.5-15.0); WHITE BLOOD COUNT (AUTO) 6.5 K/uL (4.3-11.0)
--- NOTE | 2017-12-17 07:25 | NUR ---
MS RN NOTES PATIENT RECEIVED RESTING INSIDE ROOM. AWAKE, ALERT AND ORIENTED X 1. VERBALLY RESPONSIVE AND RESPONDS TO VERBAL AND TACTILE STIMULI. BREATHING EVEN AND UNLABORED. NO SOB OR ACUTE DISTRESS NOTED AT THIS TIME. PATIENT DENIES ANY PAIN OR DISCOMFORT AT THIS TIME. NO CHANGES IN LOC NOTED AT THIS TIME. IV SITE INTACT AND PATENT. NO SWELLING OR BLEEDING NOTED. LEFT HEEL CONNECTED TO WOUND VAC AT 125 mmHg WITH SEROSANGUINEOUS DRAINAGE ON COLLECTING CANISTER. WILL CONTINUE TO MONITOR. BED LOCKED AND IN LOW POSITION. BILATERAL UPPER SIDE RAILS UP AND LOCKED. MAINTAINED ISOLATION PRECAUTION. CALL LIGHT WITHIN EASY REACH
[2017-12-17 07:42] LABS: CALCIUM, SERUM 9.3 mg/dL (8.5-10.1); CARBON DIOXIDE 24 mmol/L (21-32); CHLORIDE 99 mmol/L (98-107); CREATININE 0.6 mg/dL (0.6-1.3); GLUCOSE 94 mg/dL (74-106); POTASSIUM 3.2 mmol/L (3.5-5.1); SODIUM SERUM 133 mmol/L (136-145); UREA NITROGEN, BLOOD 3 mg/dL (7-18)
[2017-12-17 08:00] VITALS: BP 131/72
[2017-12-17] MEDS: MUPIROCIN OINT 2% 22 GM TUBE SCH ×2 (08:31→20:56)
[2017-12-17] MEDS: POTASSIUM CL. PREMIX PERIPHER. 50 ML IV SCH ×4 (09:40→14:52)
[2017-12-17] MEDS ORDERED: PIPERACILLIN /TAZOBACTAM 3.375 G in IV NS 0.9% 50 ML IV SCH (12:00)
[2017-12-17 16:00] VITALS: BP 149/97
[2017-12-17] MEDS: MEROPENEM 1 G in IV NS 0.9% 100 ML IV SCH ×2 (16:39→23:35)
--- NOTE | 2017-12-17 18:27 | NUR ---
MS RN NOTES PATIENT RESTING INSIDE ROOM. AWAKE, ALERT AND ORIENTED TO SELF. VERBALLY RESPONSIVE AND RESPONDS TO VERBAL AND TACTILE STIMULI. BREATHING EVEN AND UNLABORED. NO SOB OR ACUTE DISTRESS NOTED AT THIS TIME. PATIENT AFEBRILE, SKIN DRY AND WARM TO TOUCH. NO CHANGES IN LOC NOTED AT THIS TIME. PATIENT CALM AND RELAXED. IV SITE INTACT AND PATENT. WILL ENDORSE TO INCOMING SHIFT FOR CAROL. BED LOCKED AND IN LOW POSITION. BILATERAL UPPER SIDE RAILS UP AND LOCKED. CALL LIGHT WITHIN EASY REACH
--- NOTE | 2017-12-17 19:30 | NUR ---
RN MS OPENING NOTES RECEIVED PATIENT IN BED RESTING, EYES CLOSED. EASILY AROUSABLE TO NAME OR TOUCH. BREATHING EVEN AND UNLABORED. NO SOB NOTED. CURRENTLY NO COMPLAINTS OF PAIN OR DISCOMFORT, NO FACIAL GRIMACING. IV ON LEFT HAND #20 INTACT AND PATENT - INFUSING NS @ 75ML/HR. . SKIN WARM AND DRY TO TOUCH. PATIENT NOTED WITH WOUND VAC ON THE LEFT HEEL - INTACT AND DRAINING WELL. ALL OTHER NEEDS ATTENDED TO. CALL LIGHT WITHIN REACH. BED ON LOWEST LOCKED POSITION. WILL CONTINUE TO MONITOR.
[2017-12-17 20:00] VITALS: BP 136/80
[2017-12-18] MEDS: VANCOMYCIN 0.75 GM in IV D5W 250 ML IV SCH ×2 (00:34→12:50)
[2017-12-18] MEDS: IV NS 0.9% 1,000 ML IV PRN ×2 (05:49→23:33)
--- NOTE | 2017-12-18 06:39 | NUR ---
RN MS CLOSING NOTES PATIENT IN BED RESTING. ALERT AND ORIENTED X1. CONFUSED. BREATHING EVEN AND UNLABORED. NO SOB NOTED. CURRENTLY NO COMPLAINTS OF PAIN OR DISCOMFORT, NO FACIAL GRIMACING. IV ON LEFT HAND #20 INTACT AND PATENT - INFUSING NS @ 75ML/HR. . SKIN WARM AND DRY TO TOUCH. PATIENT WITH WOUND VAC ON THE LEFT HEEL - INTACT AND DRAINING WELL. ALL OTHER NEEDS ATTENDED TO. CALL LIGHT WITHIN REACH. BED ON LOWEST LOCKED POSITION. WILL ENDORSE TO ONCOMING NURSE FOR CONTINUITY OF CARE.
--- NOTE | 2017-12-18 07:53 | NUR ---
MS RN OPENING NOTES RECEIVED PT FROM NIGHTSHIFT NURSE IN STABLE CONDITION. PT IS A/O X2 (PERSON, PLACE). NO SOB OR SIGNS OF DISTRESS NOTED.BREATHING IS EVEN AND UN LABORED. PT ON RA AND SATING WELL. HE DENIES ANY PAIN AT THIS TIME. WOUND VAC TO LEFT HEEL NOTED TO BE DRAINING SCANT SEROSANGUINEOUS FLUIDS AND SET @125 mmHg. DRESSING NOTED TO BE CLEAN, DRY, AND INTACT. IV TO LEFT HAND NOTED TO BE PATENT AND INTACT. NO REDNESS OR SIGNS OF INFILTRATION NOTED. PT TOLERATING NS INFUSION WELL. BED IN LOW LOCKED POSITION, SIDE RAILS UP X3, CALL LIGHT WITHIN REACH, BED ALARM ON. WILL CONTINUE TO MONITOR
[2017-12-18 08:00] VITALS: BP 150/81
[2017-12-18] MEDS: MEROPENEM 1 G in IV NS 0.9% 100 ML IV SCH ×3 (08:50→23:33)
[2017-12-18] MEDS: MUPIROCIN OINT 2% 22 GM TUBE SCH ×2 (08:52→21:30)
--- NOTE | 2017-12-18 09:04 | NUR ---
MS RN NOTES: MED RECON NOTIFIED THAT MED RECON HAS NOT BEEN COMPLETED. PER "PT IS FINE FOR NOW". WILL CONTINUE TO MONITOR
--- NOTE | 2017-12-18 10:51 | NUR ---
MS RN NOTES: MD MED ORDER (ZYPREXA) DR. BEACH MADE AWARE OF PT'S AGITATION AND MOOD CHANGE. VERBAL ORDER WAS GIVEN TO BEGIN PT'S HOME MED ZYPREXA 10MG PO HS. WILL CARRY OUT ORDER
[2017-12-18 14:35] LABS: BASOPHILS % (AUTO) 0.5 % (0.0-2.0); EOSINOPHILS % (AUTO) 2.6 % (0.0-6.0); HEMATOCRIT 35 % (39-51); HEMOGLOBIN 11.5 g/dL (13.5-17.5); LYMPHOCYTES # (AUTO) 1.7 /CMM (0.8-4.8); LYMPHOCYTES % (AUTO) 23.3 % (20.0-44.0); MEAN CORPUSCULAR HEMOGLOBIN 28 PG (26.0-33.0); MEAN CORPUSCULAR HGB CONC 33 g/dl (31.0-36.0); MEAN CORPUSCULAR VOLUME 85 fL (80-96); MONOCYTES # (AUTO) 0.6 /CMM (0.1-1.30); MONOCYTES % (AUTO) 7.5 % (2.0-12.0); NEUTROPHILS % (AUTO) 66.1 % (43.0-81.0); PLATELET COUNT (AUTO) 404 /CMM (150-450); RDW COEFFICIENT OF VARIATION 15.9 (11.5-15.0); RED BLOOD CELL COUNT(AUTO) 4.12 MIL/uL (4.5-6.0); WHITE BLOOD COUNT (AUTO) 7.5 K/uL (4.3-11.0)
[2017-12-18 14:44] LABS: CARBON DIOXIDE 27 mmol/L (21-32); CHLORIDE 94 mmol/L (98-107); CREATININE 0.6 mg/dL (0.6-1.3); GLUCOSE 115 mg/dL (74-106); POTASSIUM 3.2 mmol/L (3.5-5.1); SODIUM SERUM 130 mmol/L (136-145); UREA NITROGEN, BLOOD 2 mg/dL (7-18)
[2017-12-18 16:10] VITALS: BP 147/87
[2017-12-18] MEDS: LACTOBACILLUS RHAMNOSUS GG 1 EACH CAP.SPRINK PO SCH (16:19)
[2017-12-18] MEDS ORDERED: POTASSIUM CHLORIDE 20 MEQ POWDER PACKET PO ONE (17:00)
--- NOTE | 2017-12-18 18:38 | NUR ---
MS RN CLOSING NOTES PT REMAINS STABLE. ALL NEEDS ANTICIPATED FOR AND MET. ALL DUE MEDS GIVEN. WOUND AND SKIN CARE RENDERED. WOUND VAC SETTING REMAIN ORDERED. NO DRAINAGE NOTED THROUGHOUT SHIFT. PT WAS REPOSITIONED AND TURNED PER HOSPITAL PROTOCOL. IV REMAINS PATENT AND INTACT. SAFETY MEASURES REMAIN IN PLACE. WILL ENDORSE TO NIGHTSHIFT NURSE FOR CAROL
--- NOTE | 2017-12-18 19:30 | NUR ---
RN MS OPENING NOTES PATIENT IN BED RESTING. ALERT AND ORIENTED X1. CONFUSED. BREATHING EVEN AND UNLABORED. NO SOB NOTED. CURRENTLY NO COMPLAINTS OF PAIN OR DISCOMFORT, NO FACIAL GRIMACING. IV ON RIGHT FA#22 INTACT AND PATENT - INFUSING NS @ 75ML/HR. SKIN WARM AND DRY TO TOUCH. PATIENT WITH WOUND VAC ON THE LEFT HEEL - INTACT AND DRAINING WELL WITH SETTINGS @ 125 mmHg. ALL OTHER NEEDS ATTENDED TO. CALL LIGHT WITHIN REACH. BED ON LOWEST LOCKED POSITION. WILL CONTINUE TO MONITOR. .
[2017-12-18 20:01] VITALS: BP 133/85
[2017-12-18] MEDS ORDERED: OLANZAPINE 10 MG TABLET PO SCH (22:00)
[2017-12-19] MEDS: VANCOMYCIN 0.75 GM in IV D5W 250 ML IV SCH ×2 (00:55→14:21)
--- NOTE | 2017-12-19 06:54 | NUR ---
RN MS CLOSING NOTES PATIENT IN BED RESTING. ALERT AND ORIENTED X1. CONFUSED. BREATHING EVEN AND UNLABORED. NO SOB NOTED. CURRENTLY NO COMPLAINTS OF PAIN OR DISCOMFORT, NO FACIAL GRIMACING. IV ON RIGHT FA#22 INTACT AND PATENT - INFUSING NS @ 75ML/HR. SKIN WARM AND DRY TO TOUCH. PATIENT WITH WOUND VAC ON THE LEFT HEEL - INTACT AND DRAINING WELL WITH SETTINGS @ 125 mmHg. KEPT CLEAN, DRY, AND COMFORTABLE. REPOSITIONED PER PROTOCOL. ALL OTHER NEEDS ATTENDED TO. CALL LIGHT WITHIN REACH. BED ON LOWEST LOCKED POSITION. WILL ENDORSE TO ONCOMING NURSE FOR CONTINUITY OF CARE.
[2017-12-19 08:00] VITALS: BP 143/82
--- NOTE | 2017-12-19 08:00 | NUR ---
rn notes received patient a/o x2/3 with confusion in the bed, and isolation of mrsa of nares, and wound. patient has no acute respiratory distress, v/s stable, scheduled medication administered. dressing changed on left heel. by Dr Christine d/c wound vac. iv on right forearm, infusing ns at 75 ml/hr. assist patient turn and reposition q 2 hr, call light within to reach, safety precaution maintained all the time.
[2017-12-19 08:06] LABS: CALCIUM, SERUM 9.4 mg/dL (8.5-10.1); CARBON DIOXIDE 21 mmol/L (21-32); CHLORIDE 95 mmol/L (98-107); CREATININE 0.6 mg/dL (0.6-1.3); GLUCOSE 85 mg/dL (74-106); POTASSIUM 3.7 mmol/L (3.5-5.1); SODIUM SERUM 128 mmol/L (136-145); UREA NITROGEN, BLOOD 2 mg/dL (7-18)
[2017-12-19] MEDS: MEROPENEM 1 G in IV NS 0.9% 100 ML IV SCH (08:18)
[2017-12-19] MEDS: MUPIROCIN OINT 2% 22 GM TUBE SCH (08:22)
[2017-12-19] MEDS: LACTOBACILLUS RHAMNOSUS GG 1 EACH CAP.SPRINK PO SCH (08:22)
[2017-12-19] MEDS ORDERED: MERO1VIA IV (09:59)
--- NOTE | 2017-12-19 12:00 | NUR ---
rn notes patient doing to d/c back to snf . patient stable, refused lunch, no acute respiratory distress, call light within to reach, safety precaution maintained all the time.
--- NOTE | 2017-12-19 14:28 | NUR ---
RN NOTES ADMINISTERED NARCO 10/325 MG PO PRN FOR LEFT FOOT PAIN 12/06 PER PATIENT REQUEST, V/S TAKEN BP- 150/97, P-94, OFFERED SOME SNACKS, CALL LIGHT WITHIN TO REACH, SAFETY PRECAUTION MAINTAINED ALL THE TIME.
--- NOTE | 2017-12-19 15:30 | NUR ---
DISCHARGE NOTES PATIENT DISCHARGE AT THIS TIME GONG BACK TO THE SNF. PATIENT A/O X2/3 WITH CONFUSION, FORGETFUL. V/S STABLE, MEDICALLY STABLE, NO COMPLAINING OF PAIN AT THIS TIME. MED RECONCILIATION REVIEWED AND EXPLAINED TO. REPORT GIVEN SNF RN, RN VERBALIZED UNDERSTANDING, BELONGING RETURNED BACK TO THE PATIENT, PATIENT WILL FOLLOW SNF CIGARETTE CARTON SEALER. PATIENT WELFARE DIRECTOR BY AMBULANCE.
[2017-12-19] MEDS ORDERED: OLANZAPINE 5 MG TABLET PO SCH (22:00)
== END 2017-12-19 15:30 | DRG 579 ==
LOC: ER 11:53 → MED 13:51
PROVIDERS: ADMIT Nurse Practitioner Acute Care; ATTEND Nurse Practitioner Acute Care
PROC: 0KBW0ZZ Excision of Left Foot Muscle, Open Approach (ICD-10-PCS; principal; 2017-12-14)
DX: L89.624 Pressure ulcer of left heel, stage 4 (principal); E44.0 Moderate protein-calorie malnutrition; E87.1 Hypo-osmolality and hyponatremia; N40.0 Benign prostatic hyperplasia without lower urinary tract symptoms; E83.42 Hypomagnesemia; E87.6 Hypokalemia; Z66 Do not resuscitate; I12.9 Hypertensive chronic kidney disease with stage 1 through stage 4 chronic kidney disease, or unspecified chronic kidney disease; N18.9 Chronic kidney disease, unspecified; Z79.01 Long term (current) use of anticoagulants; Z86.711 Personal history of pulmonary embolism; Z87.891 Personal history of nicotine dependence; K21.9 Gastro-esophageal reflux disease without esophagitis; I73.9 Peripheral vascular disease, unspecified; E78.5 Hyperlipidemia, unspecified; E03.9 Hypothyroidism, unspecified; H40.9 Unspecified glaucoma; E88.09 Other disorders of plasma-protein metabolism, not elsewhere classified; Z68.22 Body mass index [BMI] 22.0-22.9, adult; F03.90 Unspecified dementia, unspecified severity, without behavioral disturbance, psychotic disturbance, mood disturbance, and anxiety; R62.7 Adult failure to thrive
CPT/HCPCS: 36415; 71045-TC; 80048-TC; 80053-TC; 80061-TC; 80076-TC; 80202-TC; 81000-TC; 83735-TC; 84100-TC; 84443-TC; 85025-TC; 85730-TC; 87070-TC; 87081-TC; 87186-TC; A4216; A4606; A6248; A6402; J0330; J2185; J2250; J2270; J2543; J3010; J3370; J3475; J3480; J3490; J7030; J7050; J7060; Z7610

== ENCOUNTER 2018-04-23 05:34 | Emergency (ER) | payer MEDICARE, OTHER ==
[~2018-04-23] VITALS: Ht 182.9 cm; Wt 81.6 kg
[~2018-04-23 05:34] MED LIST changes: -FLUO5DRO7 EACHEYE; +MERO1VIA IV; +NA P133E RC; -OLAN5TAB3 PO; -PENI500T PO; +TRAM50TA2 PO; -TRIA80OI TP
--- NOTE | 2018-04-23 05:54 | NUR ---
PT BIBA, AOX2 WITH DEMENTIAL, S/P GLF AT SNF, C/O RT SHOULDER PAIN, 01/06, PLACED O ER BED 7, AWAITING ER MD GRUBER TO JONA PT, VS OBTAINED STABLE, WILL CONT' TO MONITOR, AWAITING ORDERS.
--- NOTE | 2018-04-23 05:57 | NUR ---
XR RT SHOULDER DONE.
--- NOTE | 2018-04-23 06:12 | NUR ---
TAKEN TO CT HEAD WO CONTRAST. Addendum: 04/23/18 at 626 by MINO [address]
--- NOTE | 2018-04-23 07:24 | NUR ---
PT ENDORSED TO ALEXIS Ellis FOR F/U ON PLAN OF CARE.
[2018-04-23] MEDS ORDERED: ACETAMINOPHEN ES 500 MG TABLET PO ONE (07:30)
[2018-04-23] MEDS ORDERED: ACETAMINOPHEN ES 500 MG TABLET ONE (07:35)
--- NOTE | 2018-04-23 08:01 | NUR ---
CALLED TRANSPORT [phone] ETA IS [phone] TRIP NUMBER [id number] PER LINNEA
--- NOTE | 2018-04-23 09:11 | NUR ---
PT TRASPORTED BACK TO [facility].
[2018-04-23 09:12] VITALS: BP 132/90
== END 2018-04-23 09:13 ==
LOC: ER 05:37
DX: S40.011A Contusion of right shoulder, initial encounter (principal); F03.90 Unspecified dementia, unspecified severity, without behavioral disturbance, psychotic disturbance, mood disturbance, and anxiety; I10 Essential (primary) hypertension; F31.9 Bipolar disorder, unspecified; E03.9 Hypothyroidism, unspecified; E78.5 Hyperlipidemia, unspecified; H40.9 Unspecified glaucoma; F11.20 Opioid dependence, uncomplicated; M48.00 Spinal stenosis, site unspecified; I70.0 Atherosclerosis of aorta; Z86.711 Personal history of pulmonary embolism; W06.XXXA Fall from bed, initial encounter; Y93.89 Activity, other specified; Y92.89 Other specified places as the place of occurrence of the external cause; Y99.8 Other external cause status
CPT/HCPCS: 70450-TC; 73030-TC; A4606; Z7610

== ENCOUNTER 2018-09-18 22:47 | Emergency (ER) | payer MEDICARE, OTHER ==
[~2018-09-18] VITALS: Ht 167.6 cm; Wt 68.0 kg
--- NOTE | 2018-09-18 22:49 | NUR ---
[facility]; PT AAOX2-3, PT ON MONITOR, DENIES PAIN/DISCOMFORT, PENDING MD TENORIO
[2018-09-18] MEDS ORDERED: IV NS 0.9% 500 ML BAG IV ONE (23:00)
[2018-09-18 23:32] LABS: BASOPHILS % (AUTO) 0.6 % (0.0-2.0); EOSINOPHILS % (AUTO) 2.6 % (0.0-6.0); HEMATOCRIT 37 % (39-51); HEMOGLOBIN 12.4 g/dL (13.5-17.5); LYMPHOCYTES # (AUTO) 1.6 /CMM (0.8-4.8); LYMPHOCYTES % (AUTO) 19.2 % (20.0-44.0); MEAN CORPUSCULAR HGB CONC 33 g/dl (31.0-36.0); MEAN CORPUSCULAR VOLUME 90 fL (80-96); MONOCYTES # (AUTO) 0.7 /CMM (0.1-1.30); MONOCYTES % (AUTO) 8.3 % (2.0-12.0); NEUTROPHILS # (AUTO) 5.6 /CMM (1.8-8.9); NEUTROPHILS % (AUTO) 69.3 % (43.0-81.0); PLATELET COUNT (AUTO) 358 /CMM (150-450); RED BLOOD CELL COUNT(AUTO) 4.12 MIL/uL (4.5-6.0); WHITE BLOOD COUNT (AUTO) 8.2 K/uL (4.3-11.0)
[2018-09-18 23:39] LABS: CALCIUM, SERUM 9.6 mg/dL (8.5-10.1); CARBON DIOXIDE 34 mmol/L (21-32); CHLORIDE 99 mmol/L (98-107); CREATININE 0.8 mg/dL (0.6-1.3); GLUCOSE 98 mg/dL (74-106); SODIUM SERUM 138 mmol/L (136-145); UREA NITROGEN, BLOOD 16 mg/dL (7-18)
[2018-09-18 23:45] LABS: ALANINE AMINOTRANSFERASE 13 U/L (12-78); ALBUMIN 3.3 g/dL (3.4-5.0); ALKALINE PHOSPHATASE 38 U/L (46-116); ASPARTATE AMINOTRANSFERASE 22 U/L (15-37); BILIRUBIN,DIRECT 0.1 mg/dL (0.0-0.2); BILIRUBIN,TOTAL 0.2 mg/dL (0.2-1.0); LIPASE 134 U/L (73-393); TOTAL PROTEIN, SERUM 7.5 g/dL (6.4-8.2)
--- NOTE | 2018-09-18 23:54 | NUR ---
PT TO CT
[2018-09-19] MEDS ORDERED: KETOROLAC TROMETHAMINE INJ 30 MG/ML VIAL IV ONE (01:00)
[2018-09-19] MEDS ORDERED: KETOROLAC TROMETHAMINE 15 MG/ML VIAL ONE (01:03)
--- NOTE | 2018-09-19 01:34 | NUR ---
CALLED [facility] FOR A S TRANSPORT. ETA [phone]. TRIP# [phone]
--- NOTE | 2018-09-19 01:37 | NUR ---
REPORT GIVEN TO CARLOS AT [facility], AWARE OF PT'S RETURN BACK TO FACILITY.
--- NOTE | 2018-09-19 02:50 | NUR ---
REPORT GIVEN TO [facility] EMT. Patient discharged to home in stable condition. Written and verbal after care instructions given. Patient verbalizes understanding of instruction. IV removed. Catheter intact and site benign. Pressure and 4x4 applied to site. No bleeding noted. PT LEFT VIA AMBULANCE. VSS
[2018-09-19 02:52] VITALS: BP 128/82
== END 2018-09-19 02:51 | disposition home or self-care (01) ==
LOC: ER 22:51
DX: S00.03XA Contusion of scalp, initial encounter (principal); G30.9 Alzheimer's disease, unspecified; F02.80 Dementia in other diseases classified elsewhere, unspecified severity, without behavioral disturbance, psychotic disturbance, mood disturbance, and anxiety; I10 Essential (primary) hypertension; F31.9 Bipolar disorder, unspecified; E03.9 Hypothyroidism, unspecified; E78.5 Hyperlipidemia, unspecified; F11.20 Opioid dependence, uncomplicated; Z86.711 Personal history of pulmonary embolism; W18.39XA Other fall on same level, initial encounter; Y93.89 Activity, other specified; Y92.89 Other specified places as the place of occurrence of the external cause; Y99.8 Other external cause status
CPT/HCPCS: 36415; 70450; 71045; 72125; 72170; 80048; 80076; 83690; 84484; 85025; 96374; 99284; J1885; J7040